=== PATIENT | male | born 1945 | race Caucasian/White ===

== ENCOUNTER 2017-02-13 08:07 | Day surgery (SDC) | payer MEDICARE, OTHER ==
[2006-02-26 12:46] VITALS: BP 147/81
[2017-02-13] VITALS (8 sets, daily range): BP systolic 83–102; BP diastolic 51–66; PULSE 54–61; TEMP 98.5
[~2017-02-13] VITALS: Ht 180.3 cm; Wt 101.8 kg
[~2017-02-13 08:07] MED LIST: ASPIRIN 32325 MG/TAB PO; ASPIRIN E.C. 8181 MG PO; BACTRIM DS 8001 TAB PO; BENADRYL50 MG PO; CARVEDILOL; CLOPIDOGREL; CLOPIDOGREL PO; CORDARONE200 MG/TAB PO; COREG 25MG25 MG/TAB PO; FISH OIL500 MG PO; IPRATROPIUM BROM3 M1 IH; K-DUR 10 MEQ T10 MEQ PO; KLOR-CON M1010 MEQ PO; LASIX 20MG TABL20 MG PO; LASIX 40MG TABL40 MG PO; LASIX20 MG PO; LEVAQUIN 5500 MG/TA1 PO; LORTAB 7.5/5001 TAB PO; MAGNACAPS100 MG; MICRO-K 1010 MEQ PO; NORCO 325 MG-51 TAB PO; PACERONE100 MG PO; PACERONE200 MG PO; PERCOCET 325 MG1 TA2 PO; PREDNISONE10 MG; PROVENTIL0.09 MG/A1 IH; RESTORIL 1515 MG/CAP PO; SLOW-MAG 6464 MG/TAB PO; SLOW-MAG PO; STOOL SOFTENER100 M2 PO; TORADOL 10MG TA10 MG PO; TUSS PO; VASOTEC 10M10 MG/TAB PO; VASOTEC10 MG PO; VITAMIN D31000 IU; VITAMIN D31000 IU PO; VITAMIN D5000 IU PO; ZYRTEC 10MG10 MG PO
[2017-02-13 08:43] LABS: HEMOGLOBIN 14.1 g/dl (13.5-18.0); MEAN CELL VOLUME 98 fl (80.0-100.0); MEAN CORPUSCULAR HEMOGLOBIN 32 pg (27.0-31.0); MEAN CORPUSCULAR HGB CONC 33 g/dl (33.0-37.0); MEAN PLATELET VOLUME 10.1 fl (7.4-10.4); PLATELET COUNT 233 K/mm3 (130-400); RED BLOOD COUNT 4.37 M/mm3 (4.20-5.60); REDCELL DISTRIBUTION WIDTH-CV 13.6 % (11.5-14.5); WHITE BLOOD COUNT 8.2 K/mm3 (4.8-10.8)
[2017-02-13] MEDS ORDERED: LIPITOR 40MG TA40 MG PO (08:45)
[2017-02-13] MEDS ORDERED: FLEXERIL 1010 MG/TAB PO (08:47)
[2017-02-13] MEDS ORDERED: NORCO 325 MG-51 TAB PO (08:50)
[2017-02-13 08:51] LABS: PROTHROMBIN TIME 11.3 SECONDS (9.7-12.8)
[2017-02-13] MEDS ORDERED: DEMADEX 20MG20 M1 PO (08:52)
[2017-02-13 08:53] LABS: CALCIUM 8.8 mg/dL (8.4-10.2); CREATININE, serum 1.18 mg/dL (0.66-1.25); POTASSIUM 3.9 mmol/L (3.4-5.0)
[2017-02-13] MEDS ORDERED: PLAVIX 75MG TAB75 MG PO (08:53)
== END 2017-02-13 14:11 | disposition home or self-care (01) ==
LOC: COL.CAR 08:07
PROVIDERS: Internal Medicine Cardiovascular Disease
DX: I49.01 Ventricular fibrillation (principal); I25.10 Atherosclerotic heart disease of native coronary artery without angina pectoris; I10 Essential (primary) hypertension; I50.9 Heart failure, unspecified; I42.9 Cardiomyopathy, unspecified; J44.9 Chronic obstructive pulmonary disease, unspecified; K44.9 Diaphragmatic hernia without obstruction or gangrene; Z79.02 Long term (current) use of antithrombotics/antiplatelets; Z86.718 Personal history of other venous thrombosis and embolism; Z95.810 Presence of automatic (implantable) cardiac defibrillator; M19.90 Unspecified osteoarthritis, unspecified site; G89.29 Other chronic pain
CPT/HCPCS: J2250; J2704

== ENCOUNTER → 2017-06-25 | Outpatient (REF) ==
[~2017-06-25] MED LIST changes: +DEMADEX 20MG20 M1 PO; +FLEXERIL 1010 MG/TAB PO; +LIPITOR 40MG TA40 MG PO; +PLAVIX 75MG TAB75 MG PO
[2017-06-25 19:26] LABS: PSA-TOTAL 0.91 ng/mL (0-4); THYROID STIMULATING HORMONE 2.98 uIU/mL (0.465-4.680)
== END ==
LOC: ZLAB.WCH 18:25
PROVIDERS: Internal Medicine
DX: Z01.89 Encounter for other specified special examinations (principal)
CPT/HCPCS: G0103